=== PATIENT | male | born 1995 | race Caucasian/White ===

== ENCOUNTER 2024-04-20 15:07 | Emergency (ER) | payer OTHER ==
[~2024-04-20] VITALS: Ht 172.7 cm; Wt 110.3 kg
[2024-04-20 15:08] VITALS: BP 126/68; TEMP 97.8; O2SAT 98
[2024-04-20] MEDS ORDERED: IBUP-1022 PO (17:13)
[2024-04-20] MEDS: IBUPROFEN 600MG TAB PO ONE (17:21)
== END 2024-04-20 17:25 | disposition home or self-care (01) ==
LOC: M ED 15:07
DX: S90.32XA Contusion of left foot, initial encounter (principal); Y92.9 Unspecified place or not applicable; Y93.9 Activity, unspecified; Y99.0 Civilian activity done for income or pay; Z79.1 Long term (current) use of non-steroidal anti-inflammatories (NSAID)